=== PATIENT | female | born 1930 | race Caucasian/White ===

== ENCOUNTER 2017-09-10 14:35 | Outpatient (CLI) | payer MEDICARE | END 2017-09-10 14:36 | disposition home or self-care (01) | LOC: BICMAMMO 14:35 | PROVIDERS: ATTEND Internal Medicine | DX: Z12.31 Encounter for screening mammogram for malignant neoplasm of breast (principal); N63.10 Unspecified lump in the right breast, unspecified quadrant | CPT/HCPCS: 77063; 77067 ==

== ENCOUNTER 2017-09-18 13:29 | Outpatient (CLI) | payer MEDICARE | END 2017-09-18 13:30 | disposition home or self-care (01) | LOC: BICMAMMO 13:29 | PROVIDERS: ATTEND Internal Medicine | DX: N63.12 Unspecified lump in the right breast, upper inner quadrant (principal); R92.8 Other abnormal and inconclusive findings on diagnostic imaging of breast; D24.1 Benign neoplasm of right breast | CPT/HCPCS: 76642; 77065; G0279 ==

== ENCOUNTER 2017-12-29 12:17 | Outpatient (CLI) | payer MEDICARE | END 2017-12-29 12:18 | disposition home or self-care (01) | LOC: BICRAD 12:17 | PROVIDERS: ATTEND Internal Medicine | DX: M19.031 Primary osteoarthritis, right wrist (principal) ==

== ENCOUNTER 2018-06-09 09:28 | Outpatient (CLI) | payer MEDICARE | END 2018-06-09 09:29 | disposition home or self-care (01) | LOC: BICMAMMO 09:28 | PROVIDERS: ATTEND Internal Medicine | DX: R92.2 Inconclusive mammogram (principal) | CPT/HCPCS: 77065; G0279 ==

== ENCOUNTER 2019-03-22 12:34 | Outpatient (CLI) | payer MEDICARE ==
--- NOTE | 2019-03-22 13:20 | CT ---
CT paranasal sinuses noncontrast HISTORY: Sinusitis. FINDINGS: There is complete opacification of the maxillary and frontal sinuses and much of the ethmoi d air cells. Sphenoid sinus remains patent. No air-fluid levels are apparent. Osseous septum extends along the posterior inferior aspect of each maxillary sinus. No significant expansion of the ethmoid infundibula. Lamina papyracea remain intact. No destruction of the ethmoid septae. Mild irregularity of the nasal bones may reflect an old injury. Acute fracture not favored. IMPRESSION: Severe acute upon chronic widespread paranasal sinusitis, sparing the sphenoid sinus.
== END 2019-03-22 12:35 | disposition home or self-care (01) ==
LOC: BICCT 12:34
PROVIDERS: ATTEND Nurse Practitioner Family
DX: J32.9 Chronic sinusitis, unspecified (principal)

== ENCOUNTER 2019-06-09 12:29 | Outpatient (CLI) | payer MEDICARE ==
--- NOTE | 2019-06-09 16:32 | MRI ---
MRA OF BRAIN: 06/09/19 MR angiography performed without contrast using [id number] imaging. INDICATIONS: Headache. Family history of aneurysm. FINDINGS: The intracranial internal carotid arteries appear symmetric. The basilar artery appears unremarkable. Posterior cerebral arteries appear symmetric. There is no evidence of aneurysm. No focal stenosis o r proximal occlusion. No evidence of restricted diffusion on diffusion weighted images through the brain. IMPRESSION: Unremarkable MR angiography of cerebral circulation. POS: [facility]
== END 2019-06-09 12:30 | disposition home or self-care (01) ==
LOC: BICMRI 12:29
PROVIDERS: ATTEND Specialist
DX: R51 Headache (principal); Z86.79 Personal history of other diseases of the circulatory system
CPT/HCPCS: 70544